=== PATIENT | male | born 1985 | race African-American/Black ===

== ENCOUNTER 2018-12-11 13:00 | Day surgery (SDC) | payer OTHER ==
[2018-12-11] MEDS ORDERED: FENTAnyl 50 MCG/ML VIAL (13:31)
[2018-12-11] MEDS ORDERED: PROPOFOL 20 ML (13:31)
== END 2018-12-11 15:13 | disposition home or self-care (01) ==
LOC: GIL 13:00
DX: K20.9 Esophagitis, unspecified (principal)
CPT/HCPCS: 43239; 88305; 88312; 88313